=== PATIENT | female | born 1970 | race Caucasian/White ===

== ENCOUNTER 2022-08-06 19:25 | Emergency (ER) | payer OTHER ==
[~2022-08-06] VITALS: Ht 162.6 cm; Wt 62.6 kg
== END 2022-08-07 02:45 | disposition home or self-care (01) ==
LOC: ER 19:25
DX: S00.93XA Contusion of unspecified part of head, initial encounter (principal); S60.211A Contusion of right wrist, initial encounter; S34.109A Unspecified injury to unspecified level of lumbar spinal cord, initial encounter; V00.831A Fall from motorized mobility scooter, initial encounter; Y93.89 Activity, other specified; Y92.89 Other specified places as the place of occurrence of the external cause; Y99.9 Unspecified external cause status; Z88.6 Allergy status to analgesic agent